=== PATIENT | female | born 1960 | race Caucasian/White ===

== ENCOUNTER → 2022-12-05 07:00 | Outpatient (CLI) | payer OTHER, SELFPAY ==
[2022-12-05 08:13] LABS: Cholesterol 227 mg/dL (140-199); Glucose 99 mg/dL (80-110); HDL Cholesterol 53 mg/dL (40-60); LDL Cholesterol Calculated 136 mg/dL (<100); Triglycerides 191 mg/dL (35-150)
[2022-12-05 08:45] LABS: Thyroid Stimulating Hormone 2.72 uIU/mL (0.47-4.68)
[2022-12-05 08:48] LABS: Ferritin 51 ng/mL (11-264)
[2022-12-06 03:18] LABS: Labcorp Hemoglobin (Hb) A1c 5.6 % (4.8-5.6)
[2022-12-07 03:49] LABS: Lipoprotein (a) 144.5 nmol/L (<75.0)
[2022-12-08 09:30] LABS: Insulin Level Total 5.6 uIU/mL (2.6-24.9)
== END ==
PROVIDERS: Referring Provider Naturopath; Visit Provider Naturopath
DX: E78.5 Hyperlipidemia, unspecified (principal); R53.83 Other fatigue
CPT/HCPCS: 36415; 80061; 82728; 82947; 83036; 83525; 83695; 84443

== ENCOUNTER → 2023-10-10 07:01 | Outpatient (CLI) | payer OTHER, SELFPAY ==
[2023-10-10 20:14] LABS: Cholesterol 237 mg/dL (140-199); HDL Cholesterol 65 mg/dL (40-60); LDL Cholesterol Calculated 150 mg/dL (<100); Triglycerides 110 mg/dL (35-150)
[2023-10-11 09:28] LABS: Apolipoprotein B 118 mg/dL (<90)
[2023-10-11 13:53] LABS: Free T3, Triiodothyronine Free 8.11 pg/mL (2.77-5.27); Free T4, Direct Thyroxine 1.07 ng/dL (0.78-2.19)
[2023-10-11 14:06] LABS: Thyroid Stimulating Hormone 2.08 uIU/mL (0.47-4.68)
[2023-10-11 17:50] LABS: C-Reactive Protein Quant < 0.5 mg/dL (<1.0)
== END ==
PROVIDERS: Referring Provider Naturopath; Visit Provider Naturopath
DX: E78.5 Hyperlipidemia, unspecified (principal); E03.9 Hypothyroidism, unspecified
CPT/HCPCS: 36415; 80061; 82172; 84439; 84443; 84481; 86140